=== PATIENT | female | born 1960 | race Caucasian/White ===

== ENCOUNTER 2021-03-16 09:03 | Emergency (ER) | payer MEDICAID ==
[~2021-03-16] VITALS: Ht 154.9 cm; Wt 76.3 kg
[2021-03-16] MEDS ORDERED: methylPREDNISolone 125MG 2ML VIAL IV ONE (09:50)
[2021-03-16] MEDS ORDERED: COMBIVENT RESPIMAT 100-20MCG INHALER 4GM INH ONE (09:50)
[2021-03-16] MEDS ORDERED: ACETAMINOPHEN TAB 650MG DOSE (2X325MG) PO ONE (09:50)
--- NOTE | 2021-03-16 10:05 | REP ---
INDICATION: headache COMPARISON: None. TECHNIQUE: Axial noncontrast images from the skull base to the thoracic inlet with coronal reformations. This CT examination was performed using the following dose reduction techniques: Automated exposure control, adjustment of mA and/or kv according to the patient's size, and use of iterative reconstruction technique. FINDINGS: Age-related changes are appreciated. The ventricles and sulci are symmetric. Ch-white differentiation is maintained. There is no evidence for acute intracranial hemorrhage, mass/mass effect, pathology or infarction. No extra-axial fluid collection. Calvarium is intact. Paranasal sinuses and mastoid air cells are clear. IMPRESSION: Age-related changes noted. No acute intracranial hemorrhage, infarction, or mass/mass effect. <Electronically signed by Keaton Reyes > 03/16/21 1002
--- NOTE | 2021-03-16 10:14 | REP ---
INDICATION: DYSPNEA/COUGH COMPARISON: None. TECHNIQUE: Portable AP view of the chest FINDINGS: The mediastinum and cardiac silhouette are within normal limits for portable technique. The lung canas are clear without acute consolidation, effusion, or pneumothorax. Skeletal structures are intact. IMPRESSION: No acute cardiopulmonary process appreciated. <Electronically signed by Keaton Reyes > 03/16/21 1013
[2021-03-16 10:37] LABS: BASO # 0.1 10^3/uL (0.0-0.2); BASO % 0.7 % (0.0-1.0); EOS # 0.1 10^3/uL (0.0-0.5); EOS % 0.6 % (0.0-3.0); HEMATOCRIT 45.5 % (36.0-47.0); HEMOGLOBIN 14.9 g/dl (12.0-15.5); LYMPH # 1.5 10^3/uL (1.5-5.0); LYMPH % 17.4 % (24.0-44.0); MEAN CORPUSCULAR HGB CONC 32.7 g/dl (32.0-36.5); MEAN CORPUSCULAR VOLUME 88.7 fl (80.0-96.0); MONO # 0.4 10^3/uL (0.0-0.8); NEUTROPHILS # 6.5 10^3/uL (1.5-8.5); NEUTROPHILS % 75.7 % (36.0-66.0); PLATELET COUNT, AUTOMATED 262 10^3/uL (150-450); RED BLOOD COUNT 5.13 10^6/uL (4.00-5.40); WHITE BLOOD COUNT 8.6 10^3/uL (4.0-10.0)
[2021-03-16 11:07] LABS: ALBUMIN 3.9 GM/DL (3.2-5.2); ALT/SGPT 15 U/L (12-78); BILIRUBIN,DIRECT < 0.1 MG/DL (0.0-0.2); BILIRUBIN,TOTAL 0.2 MG/DL (0.2-1.0); BLOOD UREA NITROGEN 11 MG/DL (7-18); CALCIUM LEVEL 9.1 MG/DL (8.8-10.2); CARBON DIOXIDE LEVEL 24 MEQ/L (21-32); CHLORIDE LEVEL 109 MEQ/L (98-107); CK-MB VALUE MASS < 1.0 NG/ML (<3.6); CPK CREATINE PHOSPHOKINASE 83 U/L (26-192); CREATININE FOR GFR 0.82 MG/DL (0.55-1.30); GLOMERULAR FILTRATION RATE > 60.0 (>45); GLUCOSE, FASTING 93 MG/DL (70-100); NT-PRO BNP 173 PG/ML (<125); POTASSIUM SERUM 4.8 MEQ/L (3.5-5.1); SODIUM LEVEL 142 MEQ/L (136-145); TOTAL PROTEIN 7.2 GM/DL (6.4-8.2); TROPONIN I < 0.02 NG/ML (< 0.10)
--- NOTE | 2021-03-16 11:26 | ECGEPIP ---
[facility] - ED Test Date: 2021-03-16 Pat Name: DELMER NORRIS Department: Room: - Gender: Female Radiologic Therapist: TB : 1960 Requested By: ROX Melendez Order Number: [id number] Reading MD: Nita Aragon Measurements Intervals [place] Rate: 88 P: 55 AK: 128 QRS: 17 QRSD: 70 T: 69 QT: 372 QTc: 450 Interpretive Statements Normal sinus rhythm NSTTW abnormalities No prior Electronically Signed on 03-16-2021 11:25:52 EDT by Nita Aragon
[2021-03-16] MEDS ORDERED: IBUPROFEN 600MG TAB PO ONE (12:15)
[2021-03-16 12:18] VITALS: O2SAT 92
[2021-03-16] MEDS ORDERED: HYDR-3363 (12:24)
[2021-03-16] MEDS ORDERED: GABA-283 PO (12:24)
[2021-03-16] MEDS ORDERED: MIRT1TAB16 (12:24)
[2021-03-16] MEDS ORDERED: ARIP1TAB4 (12:24)
[2021-03-16] MEDS ORDERED: LEXA1TAB (12:24)
[2021-03-16] MEDS ORDERED: ATOR40TA75 (12:24)
[2021-03-16] MEDS ORDERED: PRED20TA PO (13:25)
[2021-03-16] MEDS ORDERED: VENTAER INH (13:26)
[2021-03-16 13:38] VITALS: BP 169/93
== END 2021-03-16 13:36 | disposition home or self-care (01) ==
LOC: M ED 09:03
DX: B34.8 Other viral infections of unspecified site (principal); J44.9 Chronic obstructive pulmonary disease, unspecified; F17.200 Nicotine dependence, unspecified, uncomplicated; Z88.5 Allergy status to narcotic agent
CPT/HCPCS: 36415; 70450; 71045; 80048; 80076; 82550; 82553; 83880; 84443; 85025; 87798; 93005; 93041; 94640; 94760; 99285; J2930

== ENCOUNTER 2021-08-20 13:41 | Emergency (ER) | payer MEDICAID, OTHER ==
[~2021-08-20] VITALS: Ht 154.9 cm; Wt 81.9 kg
[~2021-08-20 13:41] MED LIST: ARIP1TAB4; ATOR40TA75; GABA-283 PO; HYDR-3363; LEXA1TAB; MIRT1TAB16; PRED20TA PO; VENTAER INH
[2021-08-20 13:43] VITALS: BP 150/65
--- OUTSIDE RECORDS SUMMARY | 2021-08-20 13:48 | CCD ---
Author Author [facility] Organization [facility] Address Unknown Phone Unavailable Care Team Providers Care Warranty Coordinator Name Role Phone Michelle Lake Unavailable PROBLEMS Type Condition ICD9-CM Code JCR78-FX Code Onset Dates Condition S tatus W/U Status Risk SNOMED Code Notes Problem Other chronic pain G89.29 Active confirmed [id number] Problem Anxiety disorder, unspecified F41.9 Active confirm ed 415604263 Problem Chronic ulcer of lower extremity, left, with uns pecified severity L97.929 Active confirmed [id number] Problem Hyperlipidemia, unspecified hyperlipidemia type E7 8.5 Active confirmed 91200725 Problem Chronic obstructive pulmonary disease with acute exacerbat ion J44.1 Active confirmed [id number] ALLERGIES Allergen (clinical drug ingredient) Drug/Non Drug Allergy do cumented on EMR Reaction Allergy Type Onset Date Status Tylenol with Codeine #3 Confusion Drug Allergy Active ENCOUNTERS from 1960 to 2021-05-27 Encounter Location Date Provider Diagnosis [address] [phone] [place] [address] May, Michelle Lake IMMUNIZATIONS No Information SOCIAL HISTORY Tobacco Use: Social History Observation Description Date Details (start date - stop date) Current Smoker Sex Assigned At : Social History Observation Description Sex Assigned At Unknown Alcohol Screening: Question Answer Notes Did you have a drink containing alcohol in the past year? No Points 0 Interpretation Negative Tobacco Use: Question Answer Notes Are you a: current smoker How many cigarettes a day do you smoke? 6-10 Are you interested in quitting? Thinking about quitting REASON FOR REFERRAL No Information VITAL SIGNS No information MEDICATIONS Medication SIG (Take, Route, Frequency, Duration) Notes Start Da te End Date Status Gabapentin 400 MG 2 capsule Orally Once a day Active Nicoderm CQ 7 MG/24HR 1 patch to skin Transdermal Once a day for 30 day(s) Mar, Active Mirtazapine 30 MG 1 tablet at bedtime Orally Once a day Active ARIPiprazole 2 MG 1 tablet Orally Once a day Active Escitalopram Oxalate 10 MG 1 tablet Orally Once a day for 30 day(s) Active hydrOXYzine HCl 25 MG 1 tablet as needed Orally every 8 hrs Active Albuterol Sulfate HFA 108 (90 Base) MCG/ACT 1 puff as needed Inhalation every 4 hrs Active Spiriva HandiHaler 18 MCG 1 capsule by inhaling the co ntents of the capsule using the HandiHaler device Inhalation Once a day for 30 days Mar, Active Atorvastatin Calcium 40 MG 1 tablet Orally Once a day Active PROCEDURES No Information RESULTS No Results REASON FOR VISIT sore on leg MEDICAL (GENERAL) HISTORY Type Description Date Medical History COPD Medical History High Cholesterol Medical History Nerve Pain Medical History Anxiety Surgical History No know Surgical history Goals Section No Information Health Concerns No Information MEDICAL EQUIPMENT No Information MENTAL STATUS No Information FUNCTIONAL STATUS No Information ASSESSMENTS No Information PLAN OF TREATMENT Medication Medication Name Sig Start Date Stop Date Gabapentin 400 MG 2 capsule Orally Once a day Albuterol Sulfate HFA 108 (90 Base) MCG/ACT 1 puff as needed Inhalation every 4 hrs Spiriva HandiHaler 18 MCG 1 capsule by inhaling the co ntents of the capsule using the HandiHaler device Inhalation Once a day for 30 days Mar, hydrOXYzine HCl 25 MG 1 tablet as needed Orally every 8 hrs Mirtazapine 30 MG 1 tablet at bedtime Orally Once a day ARIPiprazole 2 MG 1 tablet Orally Once a day Nicoderm CQ 7 MG/24HR 1 patch to skin Transdermal Once a day for 30 day(s) Mar, Atorvastatin Calcium 40 MG 1 tablet Orally Once a day Insurance Providers Payer Name Payer Address Payer Phone Insured Name Patient Relati onship to Insured Coverage Start Date Coverage End Date [employer] [id number] [address] [place] [address] DELMER NORRIS
--- OUTSIDE RECORDS SUMMARY | 2021-08-20 13:48 | CCD ---
Author Author [facility] Organization [facility] Address Unknown Phone Unavailable Support Name Relationship Address Phone UE Next Of Kin Unknown Unavailable JERILYN NORRIS Next Of Kin [address], [place] [id number] Jerilyn Norris ECON [address] [place] [address] Unavailable Re-disclosure Warning The records that you are about to access may contain information from federally-assisted alcohol or drug abuse programs. If such information is present, then the following federally mandated warning applies: This information has been disclosed to you from records protected by federal confidentiality rules (42 CFR part 2). The federal rules prohibit you from making any further disclosure of this information unless further disclosure is expressly permitted by the written consent of the person to whom it pertains or as otherwise permitted by 42 CFR part 2. A general authorization for the release of medical or other information is NOT sufficient for this purpose. The Federal rules restrict any use of the information to criminally investigate or prosecute any alcohol or drug abuse patient.The records that you are about to access may contain highly sensitive health information, the redisclosure of which is protected by Article 27-F of the [facility] Public Health law. If you continue you may have access to information: Regarding HIV / AIDS; Provided by facilities licensed or operated by the [facility] Office of Mental Health; or Provided by the [facility] Office for People With Developmental Disabilities. If such information is present, then the following [facility] mandated warning applies: This information has been disclosed to you from confidential records which are protected by state law. State law prohibits you from making any further disclosure of this information without the specific written consent of the person to whom it pertains, or as otherwise permitted by law. Any unauthorized further disclosure in violation of state law may result in a fine or retirement sentence or both. A general authorization for the release of medical or other information is NOT sufficient authorization for further disc losure. Encounters Encounter Providers Location Date Indications Data Source(s ) Unknown [address] [facility] [address] 05/26/2021 12:00:00 AM EDT eCW1 ([facility]) Outpatient [address] [facility] [address] 03/25/2021 12:00:00 AM EDT eCW1 ([facility]) Medications Medication Brand Name Start Date Product Form Dose Route Admi nistrative Instructions Pharmacy Instructions Status Indications Reaction Description Data Source(s) 400 mg 08/09/2021 12:00:00 AM EST capsule 60 TAKE 2 CAPSULES BY MOUTH AT BEDTIME TAKE 2 CAPSULES BY MOUTH AT BEDTIME SOLD: 08/17/2021 [facility] 25 mg 06/24/2021 12:00:00 AM EDT tablet 90 TAKE 1 TABLET BY MOUTH 3 TIMES A DAY NEEDED FOR ANXIETY TAKE 1 TABLET BY MOUTH 3 TIMES A DAY NEEDED FOR ANXIETY SOLD: 08/17/2021 [facility] Escitalopram 10 MG Oral Tablet ESCITALOPRAM OXALATE 06/24/2021 1 2:00:00 AM EDT tablet 180 TAKE ONE TABLET BY MOUTH TWICE A DAY TAKE ONE TABLET BY MOUTH TWICE A DAY SOLD: 06/30/2021 [facility] 25 mg 06/24/2021 12:00:00 AM EDT tablet 90 TAKE 1 TABLET BY MOUTH 3 TIMES A DAY NEEDED FOR ANXIETY TAKE 1 TABLET BY MOUTH 3 TIMES A DAY NEEDED FOR ANXIETY SOLD: 06/30/2021 [facility] atorvastatin 40 MG Oral Tablet ATORVASTATIN CALCIUM 06/14/2021 1 2:00:00 AM EDT tablet 30 TAKE ONE TABLET BY MOUTH EVERY E VENING FOR CHOLESTEROL TAKE ONE TABLET BY MOUTH EVERY EVENING FOR CHOLESTEROL SOLD: 07/29/2021 [facility] atorvastatin 40 MG Oral Tablet ATORVASTATIN CALCIUM 06/14/2021 1 2:00:00 AM EDT tablet 30 TAKE ONE TABLET BY MOUTH EVERY E VENING FOR CHOLESTEROL TAKE ONE TABLET BY MOUTH EVERY EVENING FOR CHOLESTEROL SOLD: 06/17/2021 [facility] Escitalopram 10 MG Oral Tablet ESCITALOPRAM OXALATE 06/14/2021 1 2:00:00 AM EDT tablet 30 TAKE ONE TABLET BY MOUTH EVERY D AY TAKE ONE TABLET BY MOUTH EVERY DAY SOLD: 06/17/2021 [facility] 2 mg 05/18/2021 12:00:00 AM EDT tablet 30 TAKE ONE TABLET BY MOUTH EVERY DAY TAKE ONE TABLET BY MOUTH EVERY DAY SOLD: 05/19/2021 [facility] 2 mg 05/18/2021 12:00:00 AM EDT tablet 30 TAKE ONE TABLET BY MOUTH EVERY DAY TAKE ONE TABLET BY MOUTH EVERY DAY SOLD: 06/30/2021 [facility] 25 mg 05/16/2021 12:00:00 AM EDT tablet 30 TAKE ONE TABLET BY MOUTH THREE TIMES A DAY NEEDED FOR ANXIETY TAKE ONE TABLET BY MOUTH THREE TIMES A D AY NEEDED FOR ANXIETY SOLD: 05/18/2021 [facility] 25 mg 05/16/2021 12:00:00 AM EDT tablet 30 TAKE ONE TABLET BY MOUTH THREE TIMES A DAY NEEDED FOR ANXIETY TAKE ONE TABLET BY MOUTH THREE TIMES A D AY NEEDED FOR ANXIETY SOLD: 06/17/2021 [facility] atorvastatin 40 MG Oral Tablet ATORVASTATIN CALCIUM 04/14/2021 1 2:00:00 AM EDT tablet 30 TAKE ONE TABLET BY MOUTH EVERY E VENING FOR CHOLESTEROL CONTROL TAKE ONE TABLET BY MOUTH EVERY EVENING FOR CHOLESTEROL CONTROL SOLD: 04/15/2021 [facility] Escitalopram 10 MG Oral Tablet ESCITALOPRAM OXALATE 04/14/2021 1 2:00:00 AM EDT tablet 30 TAKE ONE TABLET BY MOUTH EVERY D AY TAKE ONE TABLET BY MOUTH EVERY DAY SOLD: 04/15/2021 [facility] atorvastatin 40 MG Oral Tablet ATORVASTATIN CALCIUM 04/14/2021 1 2:00:00 AM EDT tablet 30 TAKE ONE TABLET BY MOUTH EVERY E VENING FOR CHOLESTEROL CONTROL TAKE ONE TABLET BY MOUTH EVERY EVENING FOR CHOLESTEROL CONTROL SOLD: 05/18/2021 [facility] Escitalopram 10 MG Oral Tablet ESCITALOPRAM OXALATE 04/14/2021 1 2:00:00 AM EDT tablet 30 TAKE ONE TABLET BY MOUTH EVERY D AY TAKE ONE TABLET BY MOUTH EVERY DAY SOLD: 05/18/2021 [facility] 25 mg 04/13/2021 12:00:00 AM EDT tablet 30 TAKE ONE TABLET BY MOUTH THREE TIMES A DAY NEEDED FOR ANXIETY TAKE ONE TABLET BY MOUTH THREE TIMES A D AY NEEDED FOR ANXIETY SOLD: 04/15/2021 [facility] 30 mg 04/05/2021 12:00:00 AM EDT tablet 30 TAKE 1 TABLET BY MOUTH DAILY AT BEDTIME TAKE 1 TABLET BY MOUTH DAILY AT BEDTIME SOLD: 06/17/2021 [facility] 30 mg 04/05/2021 12:00:00 AM EDT tablet 30 TAKE 1 TABLET BY MOUTH DAILY AT BEDTIME TAKE 1 TABLET BY MOUTH DAILY AT BEDTIME SOLD: 07/18/2021 [facility] 30 mg 04/05/2021 12:00:00 AM EDT tablet 30 TAKE 1 TABLET BY MOUTH DAILY AT BEDTIME TAKE 1 TABLET BY MOUTH DAILY AT BEDTIME SOLD: 05/18/2021 [facility] 30 mg 04/05/2021 12:00:00 AM EDT tablet 30 TAKE 1 TABLET BY MOUTH DAILY AT BEDTIME TAKE 1 TABLET BY MOUTH DAILY AT BEDTIME SOLD: 08/17/2021 [facility] 30 mg 04/05/2021 12:00:00 AM EDT tablet 30 TAKE 1 TABLET BY MOUTH DAILY AT BEDTIME TAKE 1 TABLET BY MOUTH DAILY AT BEDTIME SOLD: 04/15/2021 [facility] 24 HR Nicotine 0.292 MG/HR Transdermal P atch [Nicoderm C-Q] Nicoderm CQ 7 MG/24HR Nicoderm CQ 7 MG/24HR 03/25/2021 12:00:00 AM EDT 1.0 { patch_to_skin} active Nicoderm CQ 7 MG/24H R eCW1 ([facility]) tiotropium 0.018 MG/ACTUAT Inhalant Powder [Spiriva] S piriva HandiHaler 18 MCG Spiriva HandiHaler 18 MCG 03/25/2021 12:00:00 AM EDT active Spiriva HandiHaler 18 MCG eCW1 ([facility]) tiotropium 0.018 MG/ACTUAT Inhalant Powder [Spiriva] S piriva HandiHaler 18 MCG Spiriva HandiHaler 18 MCG 03/25/2021 12:00:00 AM EDT active Spiriva HandiHaler 18 MCG eCW1 ([facility]) 24 HR Nicotine 0.292 MG/HR Transdermal P atch [Nicoderm C-Q] Nicoderm CQ 7 MG/24HR Nicoderm CQ 7 MG/24HR 03/25/2021 12:00:00 AM EDT 1.0 { patch_to_skin} active Nicoderm CQ 7 MG/24H R eCW1 ([facility]) 2 mg 03/23/2021 12:00:00 AM EDT tablet 30 TAKE ONE TABLET BY MOUTH ONCE DAILY TAKE ONE TABLET BY MOUTH ONCE DAILY SOLD: 03/27/2021 [facility] Escitalopram 10 MG Oral Tablet ESCITALOPRAM OXALATE 03/23/2021 1 2:00:00 AM EDT tablet 30 TAKE ONE TABLET BY MOUTH EVERY D AY TAKE ONE TABLET BY MOUTH EVERY DAY SOLD: 03/23/2021 [facility] 25 mg 03/23/2021 12:00:00 AM EDT tablet 30 TAKE ONE TABLET BY MOUTH THREE TIMES A DAY NEEDED FOR ANXIETY, MAXIMUM DAILY DOSE = 3 TABLETS TAKE ONE TABLET BY MOUTH THREE TIMES A DAY NEEDED FOR ANXIETY, MAXIMUM DAILY DOSE = 3 TABLETS SOLD: 03/24/2021 [facility] 20 mg 03/16/2021 12:00:00 AM EDT tablet 8 TAKE 2 TABLETS [40MG] BY MOUTH DAILY TAKE 2 TABLETS [40MG] BY MOUTH DAILY SOLD: 03/17/2021 [facility] 90 mcg/actuation 03/16/2021 12:00:00 AM EDT HFA aerosol inha ler 6 INHALE TWO PUFFS BY MOUTH EVERY 4 TO 6 HOURS NEEDED FOR WHEEZING INHALE TWO PUFFS BY MOUTH EVERY 4 TO 6 HOURS NEEDED FOR WHEEZING SOLD: 03/17/2021 [facility] 400 mg 03/14/2021 12:00:00 AM EDT capsule 60 TAKE 2 CAPSULES BY MOUTH DAILY AT BEDTIME MAXIMUM DAILY DOSE = 2 TAKE 2 CAPSULES BY MOUTH DAILY AT BEDTIM E MAXIMUM DAILY DOSE = 2 SOLD: 04/15/2021 [facility] 400 mg 03/14/2021 12:00:00 AM EDT capsule 60 TAKE 2 CAPSULES BY MOUTH DAILY AT BEDTIME MAXIMUM DAILY DOSE = 2 TAKE 2 CAPSULES BY MOUTH DAILY AT BEDTIM E MAXIMUM DAILY DOSE = 2 SOLD: 06/17/2021 [facility] 30 mg 03/14/2021 12:00:00 AM EDT tablet 30 TAKE 1 TABLET BY MOUTH DAILY AT BEDTIME TAKE 1 TABLET BY MOUTH DAILY AT BEDTIME SOLD: 03/14/2021 [facility] 400 mg 03/14/2021 12:00:00 AM EDT capsule 60 TAKE 2 CAPSULES BY MOUTH DAILY AT BEDTIME MAXIMUM DAILY DOSE = 2 TAKE 2 CAPSULES BY MOUTH DAILY AT BEDTIM E MAXIMUM DAILY DOSE = 2 SOLD: 07/18/2021 [facility] 400 mg 03/14/2021 12:00:00 AM EDT capsule 60 TAKE 2 CAPSULES BY MOUTH DAILY AT BEDTIME MAXIMUM DAILY DOSE = 2 TAKE 2 CAPSULES BY MOUTH DAILY AT BEDTIM E MAXIMUM DAILY DOSE = 2 SOLD: 05/18/2021 [facility] 400 mg 03/14/2021 12:00:00 AM EDT capsule 60 TAKE 2 CAPSULES BY MOUTH DAILY AT BEDTIME MAXIMUM DAILY DOSE = 2 TAKE 2 CAPSULES BY MOUTH DAILY AT BEDTIM E MAXIMUM DAILY DOSE = 2 SOLD: 03/14/2021 [facility] 400 mg 02/03/2021 12:00:00 AM EDT capsule 60 TAKE 2 CAPSULES BY MOUTH DAILY AT BEDTIME MAXIMUM DAILY DOSE = 2 CAPSULES TAKE 2 CAPSULES BY MOUTH DAILY AT BEDTIME MAXIMUM DAILY DOSE = 2 CAPSULES SOLD: 02/04/2021 [facility] 30 mg 02/03/2021 12:00:00 AM EDT tablet 30 TAKE 1 TABLET BY MOUTH DAILY AT BEDTIME TAKE 1 TABLET BY MOUTH DAILY AT BEDTIME SOLD: 02/04/2021 [facility] 25 mg 12/28/2020 12:00:00 AM EDT tablet 30 TAKE ONE TABLET BY MOUTH THREE TIMES A DAY NEEDED FOR ANXIETY TAKE ONE TABLET BY MOUTH THREE TIMES A D AY NEEDED FOR ANXIETY SOLD: 01/05/2021 [facility] 25 mg 12/28/2020 12:00:00 AM EDT tablet 30 TAKE ONE TABLET BY MOUTH THREE TIMES A DAY NEEDED FOR ANXIETY TAKE ONE TABLET BY MOUTH THREE TIMES A D AY NEEDED FOR ANXIETY SOLD: 01/28/2021 [facility] atorvastatin 40 MG Oral Tablet ATORVASTATIN CALCIUM 12/16/2020 1 2:00:00 AM EDT tablet 30 TAKE ONE TABLET BY MOUTH EVERY E VENING FOR CHOLESTEROL CONTROL TAKE ONE TABLET BY MOUTH EVERY EVENING FOR CHOLESTEROL CONTROL SOLD: 02/15/2021 [facility] atorvastatin 40 MG Oral Tablet ATORVASTATIN CALCIUM 12/16/2020 1 2:00:00 AM EDT tablet 30 TAKE ONE TABLET BY MOUTH EVERY E VENING FOR CHOLESTEROL CONTROL TAKE ONE TABLET BY MOUTH EVERY EVENING FOR CHOLESTEROL CONTROL SOLD: 12/18/2020 [facility] atorvastatin 40 MG Oral Tablet ATORVASTATIN CALCIUM 12/16/2020 1 2:00:00 AM EDT tablet 30 TAKE ONE TABLET BY MOUTH EVERY E VENING FOR CHOLESTEROL CONTROL TAKE ONE TABLET BY MOUTH EVERY EVENING FOR CHOLESTEROL CONTROL SOLD: 03/17/2021 [facility] atorvastatin 40 MG Oral Tablet ATORVASTATIN CALCIUM 12/16/2020 1 2:00:00 AM EDT tablet 30 TAKE ONE TABLET BY MOUTH EVERY E VENING FOR CHOLESTEROL CONTROL TAKE ONE TABLET BY MOUTH EVERY EVENING FOR CHOLESTEROL CONTROL SOLD: 01/18/2021 [facility] atorvastatin 40 MG Oral Tablet ATORVASTATIN CALCIUM 11/16/2020 1 2:00:00 AM EST tablet 30 TAKE ONE TABLET BY MOUTH EVERY E VENING FOR CHOLESTEROL CONTROL TAKE ONE TABLET BY MOUTH EVERY EVENING FOR CHOLESTEROL CONTROL SOLD: 11/18/2020 [facility] 400 mg 11/09/2020 12:00:00 AM EST capsule 60 TAKE TWO CAPSULES BY MOUTH DAILY AT BEDTIME MAXIMUM DAILY DOSE = 2 CAPSULES TAKE TWO CAPSULES BY MOUTH DAILY AT BEDTIME MAXIMUM DAILY DOSE = 2 CAPSULES SOLD: 12/08/2020 [facility] 30 mg 11/09/2020 12:00:00 AM EST tablet 30 TAKE ONE TABLET BY MOUTH DAILY AT BEDTIME TAKE ONE TABLET BY MOUTH DAILY AT BEDTIME SOLD: 12/08/2020 [facility] 30 mg 11/09/2020 12:00:00 AM EST tablet 30 TAKE ONE TABLET BY MOUTH DAILY AT BEDTIME TAKE ONE TABLET BY MOUTH DAILY AT BEDTIME SOLD: 01/05/2021 [facility] 30 mg 11/09/2020 12:00:00 AM EST tablet 30 TAKE ONE TABLET BY MOUTH DAILY AT BEDTIME TAKE ONE TABLET BY MOUTH DAILY AT BEDTIME SOLD: 11/15/2020 [facility] 400 mg 11/09/2020 12:00:00 AM EST capsule 60 TAKE TWO CAPSULES BY MOUTH DAILY AT BEDTIME MAXIMUM DAILY DOSE = 2 CAPSULES TAKE TWO CAPSULES BY MOUTH DAILY AT BEDTIME MAXIMUM DAILY DOSE = 2 CAPSULES SOLD: 01/05/2021 [facility] 400 mg 11/09/2020 12:00:00 AM EST capsule 60 TAKE TWO CAPSULES BY MOUTH DAILY AT BEDTIME MAXIMUM DAILY DOSE = 2 CAPSULES TAKE TWO CAPSULES BY MOUTH DAILY AT BEDTIME MAXIMUM DAILY DOSE = 2 CAPSULES SOLD: 11/10/2020 [facility] 30 mg 10/19/2020 12:00:00 AM EST tablet 30 TAKE ONE TABLET BY MOUTH AT BEDTIME TAKE ONE TABLET BY MOUTH AT BEDTIME SOLD: 10/19/2020 [facility] 25 mg 10/19/2020 12:00:00 AM EST tablet 30 TAKE ONE TABLET BY MOUTH THREE TIMES A DAY NEEDED FOR ANXIETY TAKE ONE TABLET BY MOUTH THREE TIMES A D AY NEEDED FOR ANXIETY SOLD: 10/19/2020 [facility] atorvastatin 40 MG Oral Tablet ATORVASTATIN CALCIUM 10/19/2020 1 2:00:00 AM EST tablet 30 TAKE ONE TABLET BY MOUTH EVERY D AY TAKE ONE TABLET BY MOUTH EVERY DAY SOLD: 10/19/2020 [facility] 400 mg 10/02/2020 12:00:00 AM EST capsule 60 TAKE TWO CAPSULES BY MOUTH AT BEDTIME TAKE TWO CAPSULES BY MOUTH AT BEDTIME SOLD: 10/02/2020 [facility] Insurance Providers Payer name Policy type / Coverage type Policy ID Covered democrat ID Covered democrat's relationship to levi Policy Levi Plan Information [facility] [id number] SP [id number] [facility] MEDICAID [id number] SP [id number] Problems, Conditions, and Diagnoses Code Display Name Description Problem Type Effective Dates Data Source(s) J44.1 [id number] Chronic obstructive pulmonary di sease with acute exacerbation Problem 03/25/2021 12:00:00 AM EDT eCW1 ([facility]) E78.5 [id number] Hyperlipidemia, unspecified hyperlipidemi a type Problem 03/25/2021 12:00:00 AM EDT eCW1 ([facility]) L97.929 [id number] Chronic ulcer of low er extremity, left, with unspecified severity Problem 03/25/2021 12:00:00 AM EDT eCW1 ([facility]) F41.9 [id number] Anxiety disorder, unspecified Problem 03/25/2021 12:00:00 AM EDT eCW1 ([facility]) G89.29 Chronic pain Other chronic pain Problem 03/25/2021 12:0 0:00 AM EDT eCW1 ([facility]) Surgeries/Procedures No Information Results ID Date Data Source [id number] 03/16/2021 10:05:00 AM EDT [facility] Name Value Range Interpretation Code Description Data Arabella rce(s) Supporting Document(s) SARS-CoV-2 (COVID 19) NEGATIVE - SARS-CoV-2 (COVID19) [facility] This lab was ordered by [facility] a nd reported by [facility]. Procedure Social History Code Duration Value Status Description Data Source(s ) Smoking 03/25/2021 12:00:00 AM EDT Current Smoker completed Curre nt Smoker eCW1 ([facility]) Smoking 03/25/2021 12:00:00 AM EDT Current Smoker completed Curre nt Smoker eCW1 ([facility]) Vital Signs ID Date Data Source UNK Name Value Range Interpretation Code Description Data Source(s) Body weight 171.0 [lb_av] 171.0 [lb_av] eCW1 ([facility]) Body height 61 [in_i] 61 [in_i] eCW1 ([facility]) Body mass index (BMI) [Ratio] 32.31 kg/m2 32.31 kg/m2 eCW1 ([facility]) Heart rate 79 /min 79 /min eCW1 ([facility]) Respiratory rate 18 /min 18 /min eCW1 ([facility]) Body temperature 97.6 [degF] 97.6 [degF] eCW1 ( [facility]) Systolic blood pressure 132 mm[Hg] 132 mm[Hg] e CW1 ([facility]) Diastolic blood pressure 80 mm[Hg] 80 mm[Hg] eCW1 ([facility]) Patient Treatment Plan of Care Planned Activity Planned Date Details Description Data Source (s) tiotropium 0.018 MG/ACTUAT Inhalant Powder [Spiriva] 021 12:00:00 AM EDT eCW1 ([facility]) 24 HR Nicotine 0.292 MG/HR Transdermal Patch [Nicoderm C-Q] 03/25/2021 12:00:00 AM EDT eCW1 ([facility]) tiotropium 0.018 MG/ACTUAT Inhalant Powder [Spiriva] 021 12:00:00 AM EDT eCW1 ([facility]) 24 HR Nicotine 0.292 MG/HR Transdermal Patch [Nicoderm C-Q] 03/25/2021 12:00:00 AM EDT eCW1 ([facility])
--- OUTSIDE RECORDS SUMMARY | 2021-08-20 16:04 | CCD ---
Author Author [facility] Organization [facility] Address Unknown Phone Unavailable Support Name Relationship Address Phone UE Next Of Kin Unknown Unavailable JERILYN NORRIS Next Of Kin [address] [place], [place] [id number] Jerilyn Norris ECON [address] [place] [address] Unavailable Re-disclosure Warning The records that you [...] is protected by Article 27-F of the [facility] Public Health law. If you continue you may have access to information: Regarding HIV / AIDS; Provided by facilities licensed or operated by the [facility] Office of Mental Health; or Provided by the [facility] Office for People With Developmental Disabilities. If such information is present, then the following [facility] mandated warning applies: This information has been [...] law may result in a fine or intermediate sentence or both. A general authorization for the release of medical or other information is NOT sufficient authorization for further disc losure. Encounters Encounter Providers Location Date Indications Data Source(s ) Unknown [id number] [address] 05/26/2021 12:00:00 AM EDT eCW1 ([facility]ly [facility]) [place] [address] [facility] [address] 03/25/2021 12:00:00 AM EDT eCW1 ([facility]) Medications Medication Brand Name Start Date [...] active Nicoderm CQ 7 MG/24H R eCW1 ([facility]) tiotropium 0.018 MG/ACTUAT Inhalant Powder [Spiriva] S piriva HandiHaler 18 MCG Spiriva HandiHaler 18 MCG 03/25/2021 12:00:00 AM EDT active Spiriva HandiHaler 18 MCG eCW1 ([facility]) tiotropium 0.018 MG/ACTUAT Inhalant Powder [Spiriva] S piriva HandiHaler 18 MCG Spiriva HandiHaler 18 MCG 03/25/2021 12:00:00 AM EDT active Spiriva HandiHaler 18 MCG eCW1 ([facility]) 24 HR Nicotine 0.292 MG/HR Transdermal P atch [Nicoderm C-Q] Nicoderm CQ 7 MG/24HR Nicoderm CQ 7 MG/24HR 03/25/2021 12:00:00 AM EDT 1.0 { patch_to_skin} active Nicoderm CQ 7 MG/24H R eCW1 ([facility]) 2 mg 03/23/2021 12:00:00 AM EDT tablet [...] type / Coverage type Policy ID Covered libertarian ID Covered libertarian's relationship to levi Policy Levi Plan Information [facility] [id number] SP [id number] 1 [facility] MEDICAID [id number] SP [id number] Problems, Conditions, and Diagnoses Code Display Name Description Problem Type Effective Dates Data Source(s) J44.1 [id number] Chronic obstructive pulmonary di sease with acute exacerbation Problem 03/25/2021 12:00:00 AM EDT eCW1 ([facility]) E78.5 [id number] Hyperlipidemia, unspecified hyperlipidemi a type Problem 03/25/2021 12:00:00 AM EDT eCW1 ([facility]) L97.929 [id number] Chronic ulcer of low er extremity, left, with unspecified severity Problem 03/25/2021 12:00:00 AM EDT eCW1 ([facility]) F41.9 [id number] Anxiety disorder, unspecified Problem 03/25/2021 12:00:00 AM EDT eCW1 ([facility]) G89.29 Chronic pain Other chronic pain Problem 03/25/2021 12:0 0:00 AM EDT eCW1 ([facility]) Surgeries/Procedures No Information Results ID Date Data Source [id number] 03/16/2021 10:05:00 AM EDT [facility] Name Value Range Interpretation Code Description Data Arabella rce(s) Supporting Document(s) SARS-CoV-2 (COVID 19) NEGATIVE - SARS-CoV-2 (COVID19) [facility] This lab was ordered by [facility] a nd reported by [facility]. Procedure Social History Code Duration Value Status Description Data Source(s ) Smoking 03/25/2021 12:00:00 AM EDT Current Smoker completed Curre nt Smoker eCW1 ([facility]) Smoking 03/25/2021 12:00:00 AM EDT Current Smoker completed Curre nt Smoker eCW1 ([facility]) Vital Signs ID Date Data Source UNK Name Value Range Interpretation Code Description Data Source(s) Body weight 171.0 [lb_av] 171.0 [lb_av] eCW1 ([facility]) Body height 61 [in_i] 61 [in_i] eCW1 ([facility]) Body mass index (BMI) [Ratio] 32.31 kg/m2 32.31 kg/m2 eCW1 ([facility]) Heart rate 79 /min 79 /min eCW1 ([facility]) Respiratory rate 18 /min 18 /min eCW1 ([facility]) Body temperature 97.6 [degF] 97.6 [degF] eCW1 ( [facility]) Systolic blood pressure 132 mm[Hg] 132 mm[Hg] e CW1 ([facility]) Diastolic blood pressure 80 mm[Hg] 80 mm[Hg] eCW1 ([facility]) Patient Treatment Plan of Care Planned Activity Planned Date Details Description Data Source (s) tiotropium 0.018 MG/ACTUAT Inhalant Powder [Spiriva] 021 12:00:00 AM EDT eCW1 ([facility]) 24 HR Nicotine 0.292 MG/HR Transdermal Patch [Nicoderm C-Q] 03/25/2021 12:00:00 AM EDT eCW1 ([facility]) tiotropium 0.018 MG/ACTUAT Inhalant Powder [Spiriva] 021 12:00:00 AM EDT eCW1 ([facility]) 24 HR Nicotine 0.292 MG/HR Transdermal Patch [Nicoderm C-Q] 03/25/2021 12:00:00 AM EDT eCW1 ([facility])
== END 2021-08-20 15:56 | disposition left against medical advice (07) ==
LOC: M ED 13:41
DX: Z53.21 Procedure and treatment not carried out due to patient leaving prior to being seen by health care provider (principal)

== ENCOUNTER → 2021-11-09 | Outpatient (REF) | payer OTHER | LOC: M SFHCPLAZ 12:29 | PROVIDERS: ATTEND Family Medicine | DX: Z13.1 Encounter for screening for diabetes mellitus (principal); E78.5 Hyperlipidemia, unspecified; I10 Essential (primary) hypertension; Z86.19 Personal history of other infectious and parasitic diseases; Z53.9 Procedure and treatment not carried out, unspecified reason ==

== ENCOUNTER → 2021-11-17 | Outpatient (REF) | payer OTHER | LOC: M LAB REF 14:18 | PROVIDERS: ATTEND Family Medicine | DX: C44.702 Unspecified malignant neoplasm of skin of right lower limb, including hip (principal) ==

== ENCOUNTER → 2021-11-25 | Outpatient (CLI) | payer OTHER | LOC: M RAD 12:04 | PROVIDERS: ATTEND Family Medicine | DX: Z87.891 Personal history of nicotine dependence (principal) ==

== ENCOUNTER → 2021-11-30 | Outpatient (CLI) | payer OTHER | LOC: M CARPUL 12:31 | PROVIDERS: ATTEND Family Medicine | DX: J44.1 Chronic obstructive pulmonary disease with (acute) exacerbation (principal) ==

== ENCOUNTER → 2021-12-19 | Outpatient (CLI) | payer OTHER ==
[2021-12-19 14:18] LABS: ALT/SGPT 14 U/L (12-78); BILIRUBIN,TOTAL 0.3 MG/DL (0.2-1.0); BLOOD UREA NITROGEN 13 MG/DL (7-18); CALCIUM LEVEL 9.2 MG/DL (8.8-10.2); CARBON DIOXIDE LEVEL 26 MEQ/L (21-32); CHLORIDE LEVEL 111 MEQ/L (98-107); CHOLESTEROL LEVEL 139 MG/DL (<200); CHOLESTEROL RISK RATIO 3.475 (<5); CREATININE FOR GFR 1.13 MG/DL (0.55-1.30); GLOMERULAR FILTRATION RATE 52.1 (>45); GLUCOSE, FASTING 80 MG/DL (70-100); HDL CHOLESTEROL 40 MG/DL (>40); LDL CHOLESTEROL 76 MG/DL (<100); NON-HDL-C 99 MG/DL; POTASSIUM SERUM 5.2 MEQ/L (3.5-5.1); SODIUM LEVEL 142 MEQ/L (136-145); TOTAL PROTEIN 7.4 GM/DL (6.4-8.2); TRIGLYCERIDES LEVEL 114 MG/DL (<150)
[2021-12-19 14:40] LABS: HEPATITIS B SURFACE ANTIGEN NEGATIVE (NEGATIVE)
[2021-12-19 15:08] LABS: HEPATITIS B CORE ANTIBODY IGM NEGATIVE (NEGATIVE); HEPATITIS C VIRUS ABY INDEX 0.2 INDEX (<0.8)
[2021-12-19 15:09] LABS: HEMOGLOBIN A1c 5.7 %
== END ==
LOC: M PLALAB 09:56
PROVIDERS: ATTEND Family Medicine
DX: Z13.1 Encounter for screening for diabetes mellitus (principal)

== ENCOUNTER → 2022-01-12 | Outpatient (REF) | payer OTHER | LOC: M SFHCPLAZ 17:23 | PROVIDERS: ATTEND Family Medicine | DX: C44.702 Unspecified malignant neoplasm of skin of right lower limb, including hip (principal) ==